=== PATIENT | female | born 1935 | race Caucasian/White ===

== ENCOUNTER 2021-10-21 13:08 | Inpatient (IN) | payer BC, OTHER ==
[~2021-10-21] VITALS: Ht 157.5 cm; Wt 27.2 kg
--- NOTE | 2021-10-21 13:13 | NUR ---
TO ER BED 14, [facility] C/O AGITATION & BEING AGGRESSIVE. ON 5150 DTS BY HERLINDA NICHOLSON, UNCOOPERATIVE TO STAFF, TALKING NONSENSE, BREATHING EVEN AND NON LABORED, AWAITING MD ORDERS
--- NOTE | 2021-10-21 13:59 | NUR ---
COVID SWAB DONE AND SENT TO LAB
[2021-10-21 14:05] LABS: BASOPHILS # (AUTO) 0.1 K/uL (0.0-0.2); BASOPHILS % (AUTO) 0.8 % (0.0-2.0); EOSINOPHILS % (AUTO) 0.3 % (0.0-6.0); HEMATOCRIT 36 % (33-45); LYMPHOCYTES # (AUTO) 1.1 K/uL (0.8-4.8); LYMPHOCYTES % (AUTO) 11.5 % (20.0-44.0); MEAN CORPUSCULAR HGB CONC 33 g/dl (31.0-36.0); MEAN CORPUSCULAR VOLUME 90 fL (82-100); MONOCYTES # (AUTO) 0.6 K/uL (0.1-1.30); MONOCYTES % (AUTO) 6.7 % (2.0-12.0); NEUTROPHILS # (AUTO) 7.6 K/uL (1.8-8.9); NEUTROPHILS % (AUTO) 80.7 % (43.0-81.0); PLATELET COUNT (AUTO) 275 K/uL (150-450); RED BLOOD CELL COUNT(AUTO) 4.03 MIL/uL (4.0-5.2); WHITE BLOOD COUNT (AUTO) 9.4 K/uL (4.3-11.0)
[2021-10-21 14:09] LABS: CALCIUM, SERUM 9.9 mg/dL (8.5-10.1); CARBON DIOXIDE 28 mmol/L (21-32); CHLORIDE 97 mmol/L (98-107); CREATININE 0.6 mg/dL (0.6-1.3); GLUCOSE 102 mg/dL (74-106); POTASSIUM 3.5 mmol/L (3.5-5.1); SODIUM SERUM 134 mmol/L (136-145); UREA NITROGEN, BLOOD 15 mg/dL (7-18)
[2021-10-21 14:24] LABS: ALANINE AMINOTRANSFERASE 18 U/L (12-78); ALBUMIN 4.5 g/dL (3.4-5.0); ALCOHOL, BLOOD < 3 mg/dL (0-0); ALKALINE PHOSPHATASE 116 U/L (46-116); ASPARTATE AMINOTRANSFERASE 25 U/L (15-37); BILIRUBIN,DIRECT 0.1 mg/dL (0.0-0.2); BILIRUBIN,TOTAL 0.4 mg/dL (0.2-1.0); TOTAL PROTEIN, SERUM 8.1 g/dL (6.4-8.2)
[2021-10-21 14:25] LABS: ACETAMINOPHEN 0 ug/ml (10-30)
[2021-10-21] MEDS ORDERED: OLANZAPINE 10 MG VIAL IM ONE ×2 (15:59→16:00)
[2021-10-21] MEDS ORDERED: LORAZEPAM INJ 2 MG/ML VIAL ONE (16:00)
[2021-10-21] MEDS ORDERED: LORAZEPAM INJ 2 MG/ML VIAL IM ONE (16:00)
--- NOTE | 2021-10-21 16:35 | NUR ---
URINE COLLECTED AND SENT TO LAB
--- NOTE | 2021-10-21 16:45 | NUR ---
SPOKE WITH JONNATHAN FROM [facility] TO UPDATE HER ON THE PT
--- NOTE | 2021-10-21 17:11 | NUR ---
GOT AUTH TO ADMIT UNDER DR REESE
--- NOTE | 2021-10-21 17:19 | NUR ---
REPORT GIVEN TO EDILIA SCHULTE FOR LALIT
[2021-10-21 17:24] LABS: BILIRUBIN,URINE NEGATIVE (NEGATIVE); COLOR,URINE YELLOW (YELLOW); LEUKOCYTE ESTERASE ,URINE NEGATIVE (NEGATIVE); NITRITE, URINE NEGATIVE (NEGATIVE); PH,URINE 7.5 (5.0-8.0); PROTEIN,URINE NEGATIVE (NEGATIVE); UGLUCOSE NEGATIVE (NEGATIVE); UROBILINOGEN,URINE 0.2 EU/dL (0.2)
--- NOTE | 2021-10-21 17:35 | NUR ---
TRANSFERRED TO GPS IN STABLE CONDITION
[2021-10-21 17:45] LABS: RBC,URINE 20-30 /HPF (0-2)
[2021-10-21 17:46] LABS: BACTERIA,URINE None seen /HPF (None Seen); SQUAMOUS EPITHELIAL CELL,UR Few /HPF (None Seen)
--- NOTE | 2021-10-21 18:15 | NUR ---
RN-NOTES PATIENT WAS BROUGHT IN THE UNIT BY [facility] ER STAFF VIA HOSPITAL BED. PATIENT IS DROWSY,DISHEVELED ,MALODOROUS, CONTRABAND DONE AND SHOWER GIVEN. PATIENT ON 5150 HOLD FOR GD AND DTS.PATIENT IS UNABLE TO FOCUS ON CONVERSATIONS. UNABLE TO VERIFY ALLERGIES BUT STATED SHE IS ALLERGIC TO PEOPLE.DR. RODRÍGUEZ MADE AWARE OF THE ADMISSION. WILL ENDORSE TO INCOMING NURSE FOR CONTINUITY OF CARE AND ADMISSION PROCESS.
[2021-10-21 18:25] VITALS: BP 145/81
[2021-10-21] MEDS ORDERED: BLOOD SUGAR DIAGNOSTIC 1 EACH STRIP IN ONE (19:00)
--- NOTE | 2021-10-21 20:10 | NUR ---
GPS RN NOTE: REFUSED VITALS PATIENT IS ASLEEP AND REFUSED VITALS AT THIS TIME.
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
--- NOTE | 2021-10-22 02:00 | NUR ---
PATIENT HAD FOOD AND TOLERATED WELL.
--- NOTE | 2021-10-22 06:33 | NUR ---
GPS RN NOTE PATIENT SLEPT WELL AT NIGHT, WAS UP IN A [employer] CHAIR FOR A WHILE TO EAT AND ONCE FINISHED, PATIENT REQUESTED TO GO BACK TO BED AND WANTED TO SLEEP. PATIENT IS CALM AND RELAXED. NO ACUTE CHANGES NOTED. WILL ENDORSE TO AM RN FOR CONTINUITY OF CARE.
--- NOTE | 2021-10-22 06:49 | NUR ---
RN NOTES: PT. REFUSED AM LABS , ENCOURAGED X3 RISKS AND BENEFITS EXPLINED ,BUT PT. STRONGLY REFUSED .
[2021-10-22 08:00] VITALS: BP 105/55
[2021-10-22] MEDS: ENSURE ENLIVE CHOC 237 ML CAN PO SCH ×2 (08:39→16:35)
[2021-10-22] MEDS: Z GUARD REMEDY 4 OZ OINT TP SCH (09:18)
--- NOTE | 2021-10-22 09:19 | NUR ---
Pt. is allergy on Penicillin as per record from other hospital.
[2021-10-22] MEDS ORDERED: LORAZEPAM 0.5 MG TABLET PO PRN (11:00)
[2021-10-22] MEDS ORDERED: ZOLPIDEM TARTRATE 5 MG TABLET PO PRN (11:00)
[2021-10-22 16:00] VITALS: BP 101/53
--- NOTE | 2021-10-22 16:27 | NUR ---
RN-NOTES PATIENT REFUSED LABS DRAW DESPITE EXPLANATIONS OF THE RISK AND BENEFITS. PATIENT GETS ANGRY AT THE SCALE OPERATOR AND THE LAB STAFF. X3 ATTEMPT.
[2021-10-22] MEDS: OLANZAPINE ZYDIS 5 MG TAB.RAPDIS PO SCH (16:34)
--- NOTE | 2021-10-22 18:29 | NUR ---
RN-NOTES DR. BOYLE MADE AWARE OF THE CONSULT.
[2021-10-22] MEDS: Z GUARD REMEDY 4 OZ OINT TP PRN (20:01)
[2021-10-22 20:23] VITALS: BP 106/45
--- NOTE | 2021-10-23 03:36 | NUR ---
RN NOTES: PATIENT LAYING ON BED, EASILY AGITAED, GUARDED, SUSPICIOUS, DISORGANIZED, PARANOID, NO S/S OF DISTRESS . WILL CONTINUE TO MONITOR Q15 FOR MOOD, SAFETY AND BEHAVIOR.
[2021-10-23 08:00] VITALS: BP 100/64
[2021-10-23] MEDS: ENSURE ENLIVE CHOC 237 ML CAN PO SCH (08:11)
[2021-10-23] MEDS: OLANZAPINE ZYDIS 5 MG TAB.RAPDIS PO SCH ×3 (08:12→17:00)
[2021-10-23] MEDS: Z GUARD REMEDY 4 OZ OINT TP SCH (08:17)
--- NOTE | 2021-10-23 11:55 | NUR ---
GPS RN NOTE: PATIENT ARGUMENTATIVE EASILY GETS AGITATED ,REFUSED TO WEAR ARM BAND AND FALL RISK BAND EXPLAIN RISK AND BENEFITS PATIENT STATES" EVERYBODY KNOWS ME IM NOT GOING TO WEAR THIS " WILL CONTINUE MONITORING
--- NOTE | 2021-10-23 12:34 | NUR ---
RN-CO: PATIENT WAS GIVEN PATIENT'S RIGHT HANDBOOK DURING ADMISSION AND DISCUSSED W/ HER.
[2021-10-23 16:00] VITALS: BP 113/59
--- NOTE | 2021-10-23 16:06 | NUR ---
RN-CO: Patient's 14 day hold copy was serve and explained to the patient.
--- NOTE | 2021-10-23 16:34 | NUR ---
RN-CO: Patient did not answer when asked if she has a family member or friend to notify that she is in the unit.
[2021-10-23] MEDS: ENSURE ENLIVE 237 ML LIQUID (VANILLA) PO SCH (17:36)
--- NOTE | 2021-10-23 17:39 | NUR ---
GPS RN NOTE: PATIENT ANGRY, NON COOPERATIVE REFUSED EEG, ZYPREXA 5 MG PO BID,REFUSED TODAY LABS EXPLAIN PATIENT RISK AND BENEFITS X3 PATIENT CONTINUE TO REFUSED.
--- NOTE | 2021-10-23 19:35 | NUR ---
RN NOTES RECEIVED PATIENT AWAKE ON BED, A/O3, NOT IN DISTRESS, DENIES PAIN, NO SOB, SAFETY MEASURES APPLIED, WILL CONTINUE TO MONITOR
[2021-10-23 19:49] VITALS: BP 104/63
[2021-10-23 19:51] VITALS: BP 104/63
--- NOTE | 2021-10-23 20:30 | NUR ---
RN NOTES PATIENT REFUSED FOR SKIN ASSESSMENT AND BLOOD WORKS WELL, CHARGE NURSE MADE AWARE
--- NOTE | 2021-10-24 06:40 | NUR ---
RN NOTES AWAKE, REFUSED WEEKLY SKIN ASSESSMENT, NOT IN DISTRESS, SAFETY MEASURES APPLIED ,MORNING CARE RENDERED
[2021-10-24 08:00] VITALS: BP 160/80
[2021-10-24] MEDS: OLANZAPINE ZYDIS 5 MG TAB.RAPDIS PO SCH ×2 (08:15→17:11)
[2021-10-24] MEDS: ENSURE ENLIVE 237 ML LIQUID (VANILLA) PO SCH ×3 (08:15→17:00)
[2021-10-24] MEDS: Z GUARD REMEDY 4 OZ OINT TP SCH (09:37)
--- NOTE | 2021-10-24 10:02 | NUR ---
ROYAL Initial Discharge Plan: Patient currently resides at [address] [place], [place] [id number]. Patient wants to return back home upon dc. Patient reported she has no support system. ROYAL will work with the MD and treatment team to help coordinate appropriate discharge.
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
--- NOTE | 2021-10-24 10:20 | NUR ---
UR Note: Auth was approved from 10/21/2021 through 10/24/2021. Auth # [id number]. 10/24/2021 clinical review is due today. ROYAL contacted case picker Nickie Haley ([phone]) and left a detailed voicemail of patient's current condition, 5150, medication, and progress notes. ROYAL requested more days.
[2021-10-24 16:00] VITALS: BP 115/60
[2021-10-24 19:56] VITALS: BP 127/62
[2021-10-25 08:00] VITALS: BP 120/56
[2021-10-25] MEDS: ENSURE ENLIVE 237 ML LIQUID (VANILLA) PO SCH ×3 (08:00→17:00)
--- NOTE | 2021-10-25 08:38 | NUR ---
WOUND CARE CONSULT: PT ADAMANTLY REFUSED SKIN ASSESSMENT. DISCUSSED SKIN PROTECTION WITH NURSING STAFF. WILL SEE PRN.
[2021-10-25] MEDS: Z GUARD REMEDY 4 OZ OINT TP SCH (09:00)
[2021-10-25] MEDS: OLANZAPINE ZYDIS 5 MG TAB.RAPDIS PO SCH ×3 (09:00→17:19)
--- NOTE | 2021-10-25 09:08 | NUR ---
ON AM MED ADMINISTRATION PT. REFUSING ALL MEDS INCLUDING ORAL ZYPREXA.
--- NOTE | 2021-10-25 09:15 | NUR ---
RN INFORMED DR. RODRÍGUEZ PT. REFUSED AM MD NICHOL IN TO RM. PT.YELLING AT AND MAKING INAPPROPRIATE REMARKS.,VERY AGITATED,NICHOL IM TO BE ORDERED.
[2021-10-25] MEDS ORDERED: OLANZAPINE 10 MG VIAL IM ONE (09:30)
--- NOTE | 2021-10-25 09:33 | NUR ---
ZYPREXA ORDERED AND GIVEN AT THIS TIME,PT,FIGHTING INJECTION.VS STABLE.IN BED AT THIS TIME.
--- NOTE | 2021-10-25 10:00 | NUR ---
MONITORING CLOSELY AFTER ADMINISTRATION OF ZYPREXA.
--- NOTE | 2021-10-25 10:18 | NUR ---
UR Note: Auth # [id number]. 10/25/2021 clinical review is due today. Assigned renal case manager. Nickie Haley ([phone]). ROYAL received a call from [employer] ([phone]) who stated that she is covering for Nickie and she will be authorizing days. She requested clinicals 10/25/2021. ROYAL contacted Lissa ([phone]) and left a detailed voicemail of pt's updated clinicals and requesting more days.
--- NOTE | 2021-10-25 10:19 | NUR ---
SW Family Contact: Pt does not have any supportive family contact.
--- NOTE | 2021-10-25 10:39 | NUR ---
BEHAVIOR RESOLVED AT THIS TIME.
[2021-10-25 16:00] VITALS: BP 132/68
--- NOTE | 2021-10-25 18:55 | NUR ---
PLESANT,BUT DID REFUSE GUSTAVO.NICHOL.
--- NOTE | 2021-10-25 19:45 | NUR ---
GPS RN OPENING NOTES: RECEIVED PATIENT IN IN BED. A/O X1-2. BLUNTED AFFECT, LABILE, ANXIOUS, UNCOOPERATIVE, YELLING INTERMITTENTLY, DIFFICULT TO REDIRECT, LOOSE ASSOCIATIONS, DISORGANIZED. DENIES SI/HI AT THIS TIME. DENIES PAIN AT THIS TIME. NO S/S OF DISTRESS. RESPIRATION EVEN AND UNLABORED WITH EQUAL RISE AND FALL OF THE CHEST, ON ROOM AIR. OFFERED FLUID AND SNACKS TOLERATED. BED IN LOW LOCKED POSITION, SIDE RAILS UP X2 FOR SAFETY, CALL SIMONS WITHIN REACH. WILL CONTINUE TO MONITOR Q15 FOR MOOD, SAFETY AND BEHAVIOR.
[2021-10-25 20:04] VITALS: BP 112/57
[2021-10-26 08:00] VITALS: BP 117/72
[2021-10-26] MEDS: ENSURE ENLIVE 237 ML LIQUID (VANILLA) PO SCH ×3 (08:00→16:14)
[2021-10-26] MEDS: OLANZAPINE ZYDIS 5 MG TAB.RAPDIS PO SCH ×2 (08:27→16:19)
[2021-10-26] MEDS: Z GUARD REMEDY 4 OZ OINT TP SCH (08:41)
--- NOTE | 2021-10-26 08:44 | NUR ---
UR Note: Auth # [id number]. 10/25/2021 clinical review is due today. Assigned registered nurse hh case manager. Nickie Haley ([phone]). ROYAL received a call from [employer] ([phone]) who stated that she is covering for Nickie and she will be authorizing days. She requested clinicals 10/25/2021. ROYAL contacted [employer] ([phone]) and left a detailed voicemail that clinicals were provided through her voicemail on 10/25/2021 and requesting to contact this advertising copywriter to see how many days pt is authorized for. Addendum: 10/26/21 at 1136 by ROYAL CAMARILLO ROYAL faxed clinicals (F:[phone]) and also called Nickie and left a voicemail.
--- NOTE | 2021-10-26 09:40 | NUR ---
Court Notification: Pt does not have any family members to contact for 5250 hearing.
--- NOTE | 2021-10-26 10:29 | NUR ---
Court Hearing: Patient's court hearing was today and it was upheld for GD.
--- NOTE | 2021-10-26 11:11 | NUR ---
RN-CO: PATIENT REFUSED ALL HER AM MEDICATIONS INSPITE OF MY ENCOURAGEMENT AND DR RODRÍGUEZ'S EXPLANATION. SHE IS PARANOID AND THINKS SHE DOES NOT NEED THOSE. DR RODRÍGUEZ RIESE PETITION. WE WILL CONTINUE TO MONITOR AND OFFERD FLUIDS AND SNACKS. GOOD PERICARE RENDERED. PT REFUSED TO ATTEND GROUP ACTIVITIES.
--- NOTE | 2021-10-26 15:43 | NUR ---
Individual Counseling: SW met with pt. at bedside and pt. is hyperverbal, with pressured speech, elated mood & affect, flight of ideas.Pt. is engage in meaningful conversation. SW will continue to monitor patients ability to participate in therapeutic milieu.
[2021-10-26 16:00] VITALS: BP 113/68
--- NOTE | 2021-10-26 16:19 | NUR ---
RN-CO: Asked if she will take her PO medications , patient yelled and got agitated. She stated " I don't need any medications!" Dr Fernando filed RIESE petition.
--- NOTE | 2021-10-26 19:30 | NUR ---
GPS RN NOTES received lying on her bed inside the room,calm and quiet,appears thin,screams at times for help,needs redirection,easily agitated.willcontinue to monitor behavior
[2021-10-26 20:00] VITALS: BP 115/63
[2021-10-27 08:00] VITALS: BP 113/64
[2021-10-27] MEDS: ENSURE ENLIVE 237 ML LIQUID (VANILLA) PO SCH ×3 (08:00→17:00)
[2021-10-27] MEDS: OLANZAPINE ZYDIS 5 MG TAB.RAPDIS PO SCH ×3 (09:00→17:00)
--- NOTE | 2021-10-27 09:10 | NUR ---
UR Note: Auth # [id number]. Assigned patient case coordinator. Nickie Haley ([phone]). SW received a call from [employer] ([phone]) who stated pt is authorized until 10/30/2021 with review on 10/31/2021.
--- NOTE | 2021-10-27 09:11 | NUR ---
Pt. refused to take Zyprexa po, offered 3x and was explained on the importance and still refusing and said " No thank you and I never take it".
[2021-10-27] MEDS: Z GUARD REMEDY 4 OZ OINT TP SCH (09:23)
[2021-10-27] MEDS: OLANZAPINE 10 MG VIAL IM PRN ×2 (10:05→17:43)
--- NOTE | 2021-10-27 11:15 | NUR ---
RN Notes: Received pt. asleep in bed, breathing is even and unlabored. Ate 100% for breakfast, refused for Zyprexa po, offered 3x and explained on the importance and still refusing and said " No thank you and I never take it". Pt. is on Riesed now and Zyprexa IM given and pt. is cooperative on the injection. Pt. is needy and easily got irritated. Needs attended and will contine to monitor for safety.
[2021-10-27 16:00] VITALS: BP 126/73
[2021-10-27 19:50] VITALS: BP 135/71
[2021-10-27 20:00] VITALS: BP 135/71
--- NOTE | 2021-10-27 22:37 | NUR ---
GPS RN NOTE PATIENT IS ANXIOUS, RESTLESS, LOUD, OFFERED PRN ATIVAN TO THE PATIENT, PATIENT REFUSED AT FIRST BUT THEN TOOK ATIVAN 0.5 MG 1 TAB PO. WILL CONTINUE TO MONITOR.
--- NOTE | 2021-10-28 03:51 | NUR ---
PATIENT HAD PLENTY OF SNACK THROUGHOUT THE NIGHT AND TOLERATED WELL.
[2021-10-28 08:00] VITALS: BP 137/60
[2021-10-28] MEDS: ENSURE ENLIVE 237 ML LIQUID (VANILLA) PO SCH ×3 (08:00→17:00)
[2021-10-28] MEDS: OLANZAPINE ZYDIS 5 MG TAB.RAPDIS PO SCH ×3 (09:00→17:00)
--- NOTE | 2021-10-28 09:00 | NUR ---
GPS/RN RECEIVED PT RESTING IN THE BED, NO S/S DISTRESS NOTED. A/O X2,GUARDED QUIET.PT EASILY GET AGITATED,. NEEDS MINIMAL ASSIST WITH ADL'S. NOT COMPLIANT WITH MEDS.ALL NEEDS ATTENDED AND ANTICIPATED. WILL CONTINUE MONITORING Q15MIN FOR SAFETY AND BEHAVIOR.
[2021-10-28] MEDS: Z GUARD REMEDY 4 OZ OINT TP SCH (09:15)
[2021-10-28] MEDS: OLANZAPINE 10 MG VIAL IM PRN ×3 (09:16→17:52)
--- NOTE | 2021-10-28 09:29 | NUR ---
DMV: ROYAL and Dr. Fernando filled out Request for [employer] Boards Reexamination. ROYAL mailed it to [address] [facility], [address], [place], [address]. Copy was placed in chart.
--- NOTE | 2021-10-28 13:30 | NUR ---
GPS/RN PT REFUSED PO ZYPREXA, OFFERED X3. GIVEN ZYPREXA 5MG IM INSTEAD
[2021-10-28 16:00] VITALS: BP 105/70
[2021-10-28 19:54] VITALS: BP 115/55
[2021-10-28 20:27] VITALS: BP 115/55
[2021-10-29 08:00] VITALS: BP 112/65
[2021-10-29] MEDS: ENSURE ENLIVE 237 ML LIQUID (VANILLA) PO SCH ×3 (08:00→16:45)
[2021-10-29] MEDS: Z GUARD REMEDY 4 OZ OINT TP SCH (08:11)
[2021-10-29] MEDS: OLANZAPINE ZYDIS 5 MG TAB.RAPDIS PO SCH ×3 (08:11→16:45)
[2021-10-29] MEDS: OLANZAPINE 10 MG VIAL IM PRN ×3 (08:13→16:47)
--- NOTE | 2021-10-29 09:00 | NUR ---
GPS/RN RECEIVED PT RESTING IN THE BED, NO S/S DISTRESS NOTED. A/O X2,GUARDED QUIET. PT EASILY GET AGITATED WITH USE OF FOUL LANGUAGE, NEEDY, DEMANDING. NEEDS MINIMAL ASSIST WITH ADL'S. NOT COMPLIANT WITH MEDS.ALL NEEDS ATTENDED AND ANTICIPATED. WILL CONTINUE MONITORING Q15MIN FOR SAFETY AND BEHAVIOR.
[2021-10-29 16:00] VITALS: BP 118/63
--- NOTE | 2021-10-29 17:55 | NUR ---
GPS/RN pt refused po meds today zyprexa 5mg im administerd x3
[2021-10-29 20:15] VITALS: BP 114/64
[2021-10-29 20:24] VITALS: BP 114/64
[2021-10-30 06:57] LABS: BASOPHILS % (AUTO) 0.4 % (0.0-2.0); EOSINOPHILS % (AUTO) 2.9 % (0.0-6.0); HEMATOCRIT 34 % (33-45); HEMOGLOBIN 11.3 g/dL (11.5-14.8); LYMPHOCYTES # (AUTO) 1.2 K/uL (0.8-4.8); LYMPHOCYTES % (AUTO) 20.2 % (20.0-44.0); MEAN CORPUSCULAR HGB CONC 33 g/dl (31.0-36.0); MEAN CORPUSCULAR VOLUME 90 fL (82-100); MONOCYTES # (AUTO) 0.7 K/uL (0.1-1.30); MONOCYTES % (AUTO) 10.9 % (2.0-12.0); NEUTROPHILS % (AUTO) 65.6 % (43.0-81.0); PLATELET COUNT (AUTO) 241 K/uL (150-450); RED BLOOD CELL COUNT(AUTO) 3.79 MIL/uL (4.0-5.2); WHITE BLOOD COUNT (AUTO) 6.1 K/uL (4.3-11.0)
[2021-10-30 07:42] LABS: CREATININE 0.8 mg/dL (0.6-1.3); TOTAL PROTEIN, SERUM 6.7 g/dL (6.4-8.2)
[2021-10-30 08:00] VITALS: BP 121/62
[2021-10-30] MEDS: ENSURE ENLIVE 237 ML LIQUID (VANILLA) PO SCH ×3 (08:00→17:27)
[2021-10-30 08:07] LABS: BILIRUBIN,TOTAL 0.2 mg/dL (0.2-1.0)
[2021-10-30] MEDS: OLANZAPINE ZYDIS 5 MG TAB.RAPDIS PO SCH ×3 (09:00→17:00)
[2021-10-30] MEDS: Z GUARD REMEDY 4 OZ OINT TP SCH (09:00)
[2021-10-30] MEDS: OLANZAPINE 10 MG VIAL IM PRN ×2 (09:47→13:21)
[2021-10-30 16:00] VITALS: BP 108/59
[2021-10-30 20:28] VITALS: BP 126/58
[2021-10-31 08:00] VITALS: BP 141/83
--- NOTE | 2021-10-31 08:21 | NUR ---
UR Note: Auth # [id number]. Assigned case management assistant. Nickie Haley ([phone]). ROYAL contacted [facility] ([phone]) for clinical review. ROYAL faxed clinicals to (F: [phone]) and left a voicemail of pt's condition and requesting days for pt.
[2021-10-31] MEDS: OLANZAPINE ZYDIS 5 MG TAB.RAPDIS PO SCH ×2 (09:00→09:02)
--- NOTE | 2021-10-31 09:00 | NUR ---
RN NOTE- RECEIVED PT RESTING IN THE BED, NO S/S DISTRESS NOTED. A/O X2,GUARDED QUIET. PT EASILY AGITATED, NEEDY, DEMANDING. NEEDS MINIMAL ASSIST WITH ADL'S. NOT COMPLIANT WITH MEDS.ALL NEEDS ATTENDED AND ANTICIPATED. WILL CONTINUE MONITORING Q15MIN FOR SAFETY AND BEHAVIOR.
[2021-10-31] MEDS: ENSURE ENLIVE 237 ML LIQUID (VANILLA) PO SCH ×3 (09:02→16:15)
[2021-10-31] MEDS: Z GUARD REMEDY 4 OZ OINT TP SCH (09:02)
[2021-10-31] MEDS: OLANZAPINE 10 MG VIAL IM PRN (09:08)
--- NOTE | 2021-10-31 09:43 | NUR ---
ROYAL Note: SW discussed discharge planning and offered options. Pt refused and stated she wants to return back home.
--- NOTE | 2021-10-31 11:46 | NUR ---
UR Note: Auth # [id number]. Assigned residential case manager. Nickie Haley ([phone]). ROYAL contacted Lissa ([phone]) for clinical review. ROYAL had faxed clinicals (F: [phone]). Lissa contacted this bond writer and stated pt is authorized until 11/02 and will require review on 11/02.
[2021-10-31] MEDS: HALOPERIDOL 5 MG TABLET PO SCH ×3 (13:00→20:37)
[2021-10-31] MEDS: HALOPERIDOL LACTATE INJ 5 MG/ML VIAL IM PRN ×2 (13:54→16:14)
[2021-10-31 16:00] VITALS: BP 125/66
--- NOTE | 2021-10-31 19:40 | NUR ---
GPS RN OPENING NOTES: RECEIVED PATIENT IN IN BED. A/O X2. BLUNTED AFFECT, LABILE, ANXIOUS, UNCOOPERATIVE, EASILY IRRITABLE, YELLS INTERMITTENTLY, LOOSE ASSOCIATIONS, DISORGANIZED, NEEDY, POOR INSIGHT. DENIES SI/HI AT THIS TIME. DENIES PAIN AT THIS TIME. NO S/S OF DISTRESS. RESPIRATION EVEN AND UNLABORED WITH EQUAL RISE AND FALL OF THE CHEST, ON ROOM AIR. OFFERED FLUID AND SNACKS TOLERATED. BED IN LOW LOCKED POSITION, SIDE RAILS UP X2 FOR SAFETY, CALL SIMONS WITHIN REACH. WILL CONTINUE TO MONITOR Q15 FOR MOOD, SAFETY AND BEHAVIOR.
[2021-10-31 19:45] VITALS: BP 112/70
--- NOTE | 2021-10-31 20:48 | NUR ---
GPS RN NOTES: PATIENT TOOK HALDOL 2.5MG CRUSHED WITH PUDDING. HALDOL 2.5MG PARTIAL DOSE WASTED PER MD ORDER.
--- NOTE | 2021-11-01 07:46 | NUR ---
RN NOTE- RECEIVED PT ASLEEP IN THE BED, EASILY AWAKENED, NO S/S DISTRESS NOTED. A/O X2, GUARDED QUIET. PT EASILY AGITATED, NEEDY, DEMANDING. NEEDS MINIMAL ASSIST WITH ADL'S. NOT COMPLIANT WITH MEDS.ALL NEEDS ATTENDED AND ANTICIPATED. WILL CONTINUE MONITORING Q15MIN FOR SAFETY AND BEHAVIOR.
[2021-11-01 08:00] VITALS: BP 131/70
[2021-11-01] MEDS: Z GUARD REMEDY 4 OZ OINT TP SCH (08:51)
[2021-11-01] MEDS: HALOPERIDOL LACTATE INJ 5 MG/ML VIAL IM PRN ×4 (08:51→20:50)
[2021-11-01] MEDS: HALOPERIDOL 5 MG TABLET PO SCH ×4 (08:51→21:00)
[2021-11-01] MEDS: ENSURE ENLIVE 237 ML LIQUID (VANILLA) PO SCH ×3 (08:52→16:12)
[2021-11-01] MEDS ORDERED: HALOPERIDOL DECANOATE IM 100 MG/ML AMPUL IM SCH (09:30)
[2021-11-01 16:00] VITALS: BP 113/65
[2021-11-01 19:42] VITALS: BP 106/63
--- NOTE | 2021-11-01 19:52 | NUR ---
GPS RN OPENING NOTES: RECEIVED PATIENT IN IN BED. A/O X2. BLUNTED AFFECT, LABILE, ANXIOUS, UNCOOPERATIVE, EASILY IRRITABLE, YELLS INTERMITTENTLY, LOOSE ASSOCIATIONS, DISORGANIZED, NEEDY, POOR INSIGHT. NO CHANGE IN PATIENT BEHAVIOR. DENIES SI/HI AT THIS TIME. DENIES PAIN AT THIS TIME. NO S/S OF DISTRESS. RESPIRATION EVEN AND UNLABORED WITH EQUAL RISE AND FALL OF THE CHEST, ON ROOM AIR. OFFERED FLUID AND SNACKS TOLERATED. BED IN LOW LOCKED POSITION, SIDE RAILS UP X2 FOR SAFETY, CALL SIMONS WITHIN REACH. WILL CONTINUE TO MONITOR Q15 FOR MOOD, SAFETY AND BEHAVIOR.
--- NOTE | 2021-11-01 20:59 | NUR ---
GPS RN NOTES: PATIENT REFUSED HALDOL 2.5MG PO. HALDOL INJ 2.5MG/0.5ML GIVEN IM ORDERED. WILL CONTINUE TO MONITOR.
[2021-11-02 08:00] VITALS: BP 134/77
[2021-11-02] MEDS: ENSURE ENLIVE 237 ML LIQUID (VANILLA) PO SCH ×3 (08:00→17:28)
[2021-11-02] MEDS: HALOPERIDOL 5 MG TABLET PO SCH ×2 (08:49→16:46)
[2021-11-02] MEDS: HALOPERIDOL LACTATE INJ 5 MG/ML VIAL IM PRN ×2 (08:50→16:49)
[2021-11-02] MEDS: Z GUARD REMEDY 4 OZ OINT TP SCH (08:56)
--- NOTE | 2021-11-02 08:56 | NUR ---
[employer]: ROYAL spoke with Salvatore through [employer] ([phone]) who coordinated transportation for 11/03/2021 at 2PM, cost $237.00.
--- NOTE | 2021-11-02 08:57 | NUR ---
RN-NOTES PATIENT REFUSED HALDOL.2.5MG P.O STATED" I PREFER THE SHOT THAN THE PILL". HALDOL 2.5MG IM GIVEN ORDERED. PATIENT IS REISED.
--- NOTE | 2021-11-02 09:12 | NUR ---
UR Note: Auth # [id number]. Assigned supervisor case loading. Nickie Haley ([phone]). ROYAL contacted [facility] ([phone]) for clinical review. SW had faxed clinicals (F: [phone]).
--- NOTE | 2021-11-02 09:29 | NUR ---
UR Note: Auth # [id number]. Assigned case liner. Nickei Haley ([phone]). ROYAL contacted [employer] ([phone]) for clinical review. SW had faxed clinicals (F: [phone]) contacted this junior underwriter and stated pt is authorized until November 03, November 05 with review due. ROYAL requested to provide outpatient resources for pt (psychiatry)
--- NOTE | 2021-11-02 09:43 | NUR ---
ROYAL Coordination of Care: Patient will follow up with (Corrosion Control Technician) Patient will continue to follow-up with her Primary Care Physician, Dr. Wall; [facility] [id number] [place] [address] [address]; ([phone]). Patient was referred to for intake evaluation (Psychiatry) at [facility] located at [address] [place] [address]; ([phone]) on November 10 at 1:30PM, scheduled by Racheal medical office receptionist will be VIA TELEHEALTH. Patient presents with euthymic mood and congruent affect.
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
[2021-11-02 16:00] VITALS: BP 130/74
--- NOTE | 2021-11-02 16:14 | NUR ---
RN-NOTES PATIENT IN THE ROOM INTERMITTENTLY SLEEPING WITH BREATHING EVEN NONLABORED EASILY AROUSED. PATIENT REFUSED TO ATTEND GROUP ACTIVITIES DESPITE ENCOURAGEMENT. PATIENT PREFERS TO SLEEP AND STAYS IN HER ROOM.NON COMPLIANT WITH P.O MEDICATIONS PREFERS TO HAVE IM MEDICATION INSTEAD. ALL NEEDS ATTENDED AND ANTICIPATED. WILL CONT. MONITORING FOR SAFETY AND BEHAVIOR.WILL ENDORSE TO INCOMING SHIFT.
--- NOTE | 2021-11-02 16:56 | NUR ---
RN-NOTES PATIENT REFUSED HALDOL 5MG P.O STATED" I GIVE THE SHOT I PREFER THAT WAY". HALDOL 5MG IM GIVEN ORDERED. PATIENT IS RIESE.
--- NOTE | 2021-11-02 19:44 | NUR ---
GPS RN OPENING NOTES: RECEIVED PATIENT IN BED. A/O X2. BLUNTED AFFECT, LABILE, ANXIOUS, EASILY IRRITABLE, YELLS INTERMITTENTLY, LOOSE ASSOCIATIONS, DISORGANIZED, NEEDY, POOR INSIGHT. PATIENT CONDITION REMAINS THE SAME. DENIES SI/HI AT THIS TIME. DENIES PAIN AT THIS TIME. NO S/S OF DISTRESS. RESPIRATION EVEN AND UNLABORED WITH EQUAL RISE AND FALL OF THE CHEST, ON ROOM AIR. OFFERED FLUID AND SNACKS TOLERATED. BED IN LOW LOCKED POSITION, SIDE RAILS UP X2 FOR SAFETY, CALL SIMONS WITHIN REACH. WILL CONTINUE TO MONITOR Q15 FOR MOOD, SAFETY AND BEHAVIOR.
[2021-11-02 20:00] VITALS: BP 103/57
--- NOTE | 2021-11-03 07:58 | NUR ---
ROYAL Discharge Note: Patient will return back home located at [address] [place] [address]; ([phone]). Ambulance is arranged at 2:30PM. Patient does not have any supportive contact. Patient is alert and oriented x3 and happy to be going back home. Patient denies visual/auditory hallucinations. Patient denies suicidal or homicidal ideation. Patient will follow up with (Talent Acquisition Assistant) Patient will continue to follow-up with her Primary Care Physician, Dr. Wall; [facility] [id number] [place] [address] [address]; ([phone]). Patient was referred to for intake evaluation (Psychiatry) at [facility] located at [address] [place] [address]; ([phone]) on November 10 at 1:30PM, scheduled by Racheal zuletationist will be VIA TELEHEALTH. Patient presents with euthymic mood and congruent affect. Addendum: 11/03/21 at 1005 by ROYAL CAMARILLO Discharge cancelled.
[2021-11-03 08:00] VITALS: BP 118/65
[2021-11-03] MEDS: ENSURE ENLIVE 237 ML LIQUID (VANILLA) PO SCH ×3 (08:23→16:03)
[2021-11-03] MEDS: HALOPERIDOL 5 MG TABLET PO SCH ×2 (08:29→16:10)
[2021-11-03] MEDS: HALOPERIDOL LACTATE INJ 5 MG/ML VIAL IM PRN ×2 (08:29→16:21)
[2021-11-03] MEDS: Z GUARD REMEDY 4 OZ OINT TP SCH (09:00)
--- NOTE | 2021-11-03 09:47 | NUR ---
RN-CO: RECEIVED PATIENT IN BED, AWAKE, DENIED PAIN AND DISCOMFORTS. DENIED PAIN AND DISCOMFORTS. SHE DENIED SUICIDAL AND HOMICIDAL IDEATIONS. SHE DENIED AH/VH. RESPIRATION EVEN AND UNLABORED. SHE IS AWARE OF HER DISCHARGE TODAY. DR RODRÍGUEZ WILL SEE AND EXAMINE HER BEFORE HER DISCHARGE.
--- NOTE | 2021-11-03 12:37 | NUR ---
UR Note: Auth # [id number]. Assigned window caser. Nickie Haley ([phone]). ROYAL contacted [facility] ([phone]) for clinical review. ROYAL had faxed clinicals (F: [phone]). ROYAL contacted Lissa and left her a voicemail that pt would be needing a nursing facility and if she can call back to help this tech writer to coordinate.
--- NOTE | 2021-11-03 12:37 | NUR ---
SNF Referral: ROYAL sent clinicals to [facility] attn. Jie pelaez ([phone]) for placement option. ROYAL sent H & P, progress notes, and medication list. Jie stated they would have to run her insurance and see if they can accept pt.
--- NOTE | 2021-11-03 13:52 | NUR ---
RN-CO: DR RODRÍGUEZ CANCELED THE DISCHARGE.
--- NOTE | 2021-11-03 14:25 | NUR ---
SNF Contact: SW spoke with [facility] attn. Jie pelaez ([phone]) who stated that pt is accepted. He reported the would need an WILLIAM from the insurance prior to admission.
--- NOTE | 2021-11-03 14:25 | NUR ---
UR Note: Auth # [id number]. Assigned outpatient case manager. Nickie Haley ([phone]). ROYAL contacted [facility] ([phone]) for clinical review. SW had faxed clinicals (F: [phone]). SW contacted [facility] and left multiple voicemails requesting an WILLIAM. Pt accepted at [facility] and would need an WILLIAM.
--- NOTE | 2021-11-03 14:42 | NUR ---
UR Note: Auth # [id number]. Assigned patient case manager. Nickie Haley ([phone]). ROYAL contacted Lissa ([phone]) for clinical review. ROYAL had faxed clinicals (F: [phone]). ROYAL contacted Karon from [employer] ([phone]) and she stated that she is unable to provide WILLIAM and that the patient case manager can. She reported that Lissa is out of the office but sent her an email. ROYAL requested to speak to her supervisor screen printing she stated her supervisor screen printing is out of the office but will CC her supervisor screen printing and Lissa in the email. ROYAL requested phone number of supervisor screen printing she stated supervisor screen printing does not have number. Lissa's supervisors name is Kishan Donnelly. Addendum: 11/03/21 at 1455 by ROYAL CAMARILLO Pt authorized until November 06 with review due on Sunday.
[2021-11-03 16:00] VITALS: BP 119/78
--- NOTE | 2021-11-03 16:21 | NUR ---
RN-CO: HALDOL 5 MG IM GIVEN ON LEFT UPPER BUTTOKS TOLERATED WELL. PT REFUSED HALDOL BY MOUTH.
[2021-11-03 19:51] VITALS: BP 140/70
[2021-11-03 20:00] VITALS: BP 140/70
[2021-11-03] MEDS: Z GUARD REMEDY 4 OZ OINT TP PRN (22:41)
[2021-11-04 08:00] VITALS: BP 139/82
[2021-11-04] MEDS: ENSURE ENLIVE 237 ML LIQUID (VANILLA) PO SCH ×3 (08:19→17:28)
[2021-11-04] MEDS: HALOPERIDOL LACTATE INJ 5 MG/ML VIAL IM PRN ×3 (08:55→17:53)
--- NOTE | 2021-11-04 08:57 | NUR ---
UR Note: Auth # [id number]. Assigned watch caser. Nickie Haley ([phone]). ROYAL contacted [facility] ([phone]) for clinical review. ROYAL had faxed clinicals (F: [phone]). ROYAL received a call from [facility] case management director who stated that that she is unable to provide an WILLIAM for [facility]. She contacted her management team who stated they cannot provide WILLIAM because pt does not require physical therapy. SW contacted back [facility] and left a voicemail that pt requires PT and is incontinent and unsafe for her to go back home. ROYAL requested to speak to finishing supervisor to help with this situation. Addendum: 11/04/21 at 0934 by ROYAL CAMARILLO This abstract writer had found pt a placement [facility] but insurance is refusing to provide WILLIAM.
--- NOTE | 2021-11-04 08:59 | NUR ---
ROYAL Note: ROYAL and Dr. Fernando met with pt to discuss discharge planning. Pt reported that she has $900.00 dollars and is willing to pay monthly for an Assisted Living. Pt did sign consent that she will be paying $900.00 dollars monthly to an assisted living. ROYAL placed it in the chart.
[2021-11-04] MEDS: HALOPERIDOL 5 MG TABLET PO SCH ×3 (09:00→17:00)
--- NOTE | 2021-11-04 09:04 | NUR ---
RN-NOTES PATIENT REFUSED HALDOL P.O ,HALDOL 5MG IM GIVEB=N
[2021-11-04] MEDS: Z GUARD REMEDY 4 OZ OINT TP SCH (09:07)
--- NOTE | 2021-11-04 09:38 | NUR ---
ROYAL Coordination of Care: ROYAL spoke with Daisy pelaez ([phone]) who stated that she will be accepting pt at an Assisted Living and will provide more information to this keno writer. ROYAL faxed [facility] (F:[phone]).
--- NOTE | 2021-11-04 10:12 | NUR ---
APS Contact: SW received a call from [facility] corrections caseworker Kim ([phone]) who stated pt has an open-case and would want follow up information of pt's dc.
--- NOTE | 2021-11-04 12:15 | NUR ---
ROYAL Coordination of Care: Patient will be discharged to [facility] located at [address] [place] [address]; ([phone])(Admin: Puja). Daisy Pandya ([phone]) will continuous pickling line pickler helper pt at 1PM on 11/05.
--- NOTE | 2021-11-04 12:15 | NUR ---
SUNDAY DISCHARGE 11/05 EARLY ENTRY: Patient will be discharged to [facility] located at [address] [place] [address]; ([phone])(Admin: Puja). Daisy Pelaez ([phone]) will seed cone picker pt at 1PM. Daisy pelaez stated pt is welcomed today. Patient is alert and oriented x2. Patient denies suicidal or homicidal ideation. Patient denies visual/auditory hallucinations. Patient does not have any supportive family members. Patient will follow up with (Life Sciences Teacher) Dr. Ayala at the facility who will monitor and provide psychotropic medications at the facility. Patient was referred to for intake evaluation (Psychiatry) at [facility] located at [address] [place] [address]; ([phone]) on November 10 at 1:30PM, scheduled by Racheal zuletationist will be VIA TELEHEALTH. Patient presents with euthymic mood and congruent affect.
--- NOTE | 2021-11-04 12:20 | NUR ---
UR Note: Auth # [id number]. Assigned rn case mgr. Nickie Haley ([phone]). ROYAL contacted [facility] ([phone]) for clinical review. SW had faxed clinicals (F: [phone]). This field underwriter left a voicemail to [facility] notifying that this field underwriter was able to find pt placement located at [facility] located at [address] [place] [address]; ([phone]) (Admin: Puja).
--- NOTE | 2021-11-04 13:05 | NUR ---
RN-NOTES PATIENT REFUSED P.O HALDOL,PREFERS HALDOL IM. GIVEN AT RIGHT BUTTOCKS TOLERATED WELL.
[2021-11-04 16:00] VITALS: BP 146/80
--- NOTE | 2021-11-04 17:35 | NUR ---
RN-NOTES PATIENT IN THE ROOM INTERMITTENTLY SLEEPING WITH BREATHING EVEN NONLABORED EASILY AROUSED. PATIENT REFUSED TO ATTEND GROUP ACTIVITIES DESPITE ENCOURAGEMENT. PATIENT PREFERS TO SLEEP AND STAYS IN HER ROOM.NON COMPLIANT WITH P.O MEDICATIONS PREFERS TO HAVE IM MEDICATION INSTEAD. ALL NEEDS ATTENDED AND ANTICIPATED. WILL CONT. MONITORING FOR SAFETY AND BEHAVIOR. WILL ENDORSE TO INCOMING SHIFT FOR CONTINUITY OF CARE.
--- NOTE | 2021-11-04 17:53 | NUR ---
RN-NOTES PATIENT CONTINUE REFUSING P.O HALDOL,PREFERS HALDOL IM. GIVEN AT LEFT BUTTOCKS TOLERATED WELL.
[2021-11-04 19:59] VITALS: BP 138/79
[2021-11-04 20:00] VITALS: BP 138/79
--- NOTE | 2021-11-05 06:24 | NUR ---
COVID 19 ANTIGEN SPECIMEN SENT TO LAB.
[2021-11-05 08:00] VITALS: BP 130/80
[2021-11-05] MEDS: ENSURE ENLIVE 237 ML LIQUID (VANILLA) PO SCH ×2 (08:00→12:14)
[2021-11-05] MEDS: HALOPERIDOL 5 MG TABLET PO SCH ×2 (09:00→12:14)
[2021-11-05] MEDS: Z GUARD REMEDY 4 OZ OINT TP SCH (09:05)
[2021-11-05] MEDS: HALOPERIDOL LACTATE INJ 5 MG/ML VIAL IM PRN ×2 (09:06→12:18)
--- NOTE | 2021-11-05 09:07 | NUR ---
RN-NOTES PATIENT CONTINUE REFUSING P.O HALDOL 5mg p.o ,PREFERS HALDOL IM. GIVEN AT RIGHT BUTTOCKS TOLERATED WELL.
--- NOTE | 2021-11-05 09:18 | NUR ---
RN-NOTES RECEIVED T.O DISCHARGE ORDER FROM DR. RODRÍGUEZ .NOTED AND CARRIED OUT.
[2021-11-05] MEDS ORDERED: diphenhydrAMINE HCL 50 MG/ML VIAL IM PRN (09:30)
--- NOTE | 2021-11-05 12:44 | NUR ---
RN-NOTES PATIENT CONTINUE REFUSING P.O HALDOL 5mg ,PREFERS IM, HALDOL 5MG IM,AND BENADRYL 25MG IM ( EPS) GIVE PRN ORDER.
--- NOTE | 2021-11-05 13:45 | NUR ---
RN-NOTES PATIENT LYING IN BED AWAKE,ALERT CALM,NO ACUTE DISTRESS NOTED.
--- NOTE | 2021-11-05 14:45 | NUR ---
RN-DISCHARGE NOTES RECEIVED T.O DISCHARGE ORDER FROM DR. RODRÍGUEZ ( PSYCHIATRIST) ,FRAME WELDER [employer] DOLLY MEDICALLY CLEARED PATIENT FOR DISCHARGE. PATIENT DID NOT VERBALIZE SI/HI,DENIES VISUAL/AUDITORY HALLUCINATIONS AT THE TIME OF DISCHARGE. PATIENT REFUSED TO SIGN ALL DISCHARGE PAPERS. . ALL DISCHARGE MEDICATIONS WAS DISCUSSED WITH THE PATIENT WITH UNDERSTANDING. PATIENT WAS WHEELED DOWN IN THE LOBBY BY THE TYPESETTER PERFORATOR OPERATOR . ALL HER BELONGINGS WAS GIVEN BACK TO THE PATIENT INCLUDING CAR CAZARES, 2 SETS OF KEYS ,REMOTE CONTROL, AND X1 PINK IPHONE,BLACK PURSE AND SOME CLOTHES . PATIENT WAS INSURANCE ATTORNEY BY DB ( FACILITY TRANSPORTATION) VIA PRIVATE. ALL BELONGINGS WAS ENDORSE AND GIVEN TO DB BY TYPESETTER PERFORATOR OPERATOR INCLUDING RX.VITAL SIGNS BP 120/78,P88,R 17,TEMP. 97.8 ANS O2 SAT 98% RA.PATIENT LEFT THE UNIT IN STABLE CONDITION A/O X3 .PATIENT NEED ASSIST IN AMBULATION.
--- NOTE | 2021-11-10 10:52 | NUR ---
UR NOTE: ROYAL RECEIVED A CALL FROM [facility] ([phone]) (F:[phone]) REQUESTING FOR DISCHARGE SUMMARY. ROYAL FAXED.
== END 2021-11-05 14:45 | DRG 885 ==
LOC: ER 13:13 → GPS 17:21
PROVIDERS: ADMIT Psychiatry & Neurology Psychiatry; ATTEND Nurse Practitioner Family
DX: F29 Unspecified psychosis not due to a substance or known physiological condition (principal); F03.91 Unspecified dementia, unspecified severity, with behavioral disturbance; F23 Brief psychotic disorder; F41.9 Anxiety disorder, unspecified; Z73.6 Limitation of activities due to disability; R53.1 Weakness; R27.8 Other lack of coordination; Z91.81 History of falling; F32.A Depression, unspecified
CPT/HCPCS: 36415; 80048-TC; 80053-TC; 80076-TC; 81001; 82962-TC; 85025-TC; 87081-TC; C9803; G0480; J1200; J1630; J1631; J2060; J3490